=== PATIENT | female | born 1960 | race Two or more races ===

== ENCOUNTER 2018-11-17 10:02 | Emergency (ER) | payer MEDICAID ==
[~2018-11-17] VITALS: Ht 154.9 cm; Wt 69.0 kg
[2018-11-17] MEDS ORDERED: MORPHINE SULFATE 4 MG/ML CPJ (NOT FOR IM USE) IV STA (10:51)
[2018-11-17 11:39] LABS: BASOPHILS % 1.3 % (0.0-2.0); EOSINOPHILS % 6.3 % (0.0-5.0); HEMOGLOBIN. 13.2 g/dL (12.0-16.0); LYMPHOCYTES % 19.7 % (20.0-50.0); MEAN CORPUSCULAR HEMOGLOBIN 28.7 pg (28.0-32.0); MEAN CORPUSCULAR VOLUME 86.9 fL (81.0-99.0); MEAN PLATELET VOLUME 9.7 fl (7.4-10.4); MONOCYTES % 6.4 % (2.0-8.0); NEUTROPHILS % 66.3 % (40.0-76.0); PLATELET 371 x1000/uL (130-400); RED BLOOD CELL COUNT 4.61 mill/uL (4.2-5.4); RED CELL DISTRIBUTION WIDTH 13.7 % (11.6-14.6)
[2018-11-17 11:44] LABS: CHLORIDE 103 mEq/L (98-107)
[2018-11-17 13:53] VITALS: BP 162/76
== END 2018-11-17 13:54 | disposition home or self-care (01) ==
LOC: ER 10:02
DX: R05 Cough (principal); R07.89 Other chest pain
CPT/HCPCS: 36415; 71045; 80053; 83880; 84484; 85025; 93005; 96374; 99284; J2270

== ENCOUNTER 2018-12-27 14:44 | Inpatient (IN) | payer MEDICAID ==
[~2018-12-27] VITALS: Ht 154.9 cm; Wt 94.1 kg
[2018-12-27] MEDS ORDERED: OXYCODONE HCL/ACETAMINOPHEN 5/325MG TABLET PO ONE (16:30)
[2018-12-27 17:41] LABS: CLARITY URINE CLEAR (CLEAR); COLOR URINE YELLOW (YELLOW); KETONES URINE NEGATIVE (NEGATIVE); LEUKOCYTE ESTERASE URINE NEGATIVE (NEGATIVE); NITRITE URINE NEGATIVE (NEGATIVE); OCCULT BLOOD URINE NEGATIVE (NEGATIVE); PH URINE 6.5 (4.5-8.0); PROTEIN URINE NEGATIVE (NEGATIVE); UROBILINOGEN URINE 0.2 E.U./dL (0.2-1.0)
[2018-12-27] MEDS ORDERED: VANCOMYCIN 1 G PREMIX 200 ML IV STA (18:16)
[2018-12-27] MEDS ORDERED: AZITHROMYCIN 500 MG in DEXT 5% WATER 250 ML IV STA (18:16)
[2018-12-27] MEDS ORDERED: CEFTRIAXONE 1 G PREMIX 50 ML IV ONE (18:30)
[2018-12-27 19:13] LABS: BASOPHILS % 1.3 % (0.0-2.0); EOSINOPHILS % 9.5 % (0.0-5.0); HEMATOCRIT. 37.8 % (36.0-48.0); HEMOGLOBIN. 12.6 g/dL (12.0-16.0); LYMPHOCYTES % 25.6 % (20.0-50.0); MEAN CORPUSCULAR HEMOGLOBIN 28.9 pg (28.0-32.0); MEAN CORPUSCULAR VOLUME 86.3 fL (81.0-99.0); MEAN PLATELET VOLUME 8.9 fl (7.4-10.4); MONOCYTES % 6.5 % (2.0-8.0); NEUTROPHILS % 57.1 % (40.0-76.0); PLATELET 383 x1000/uL (130-400); RED BLOOD CELL COUNT 4.38 mill/uL (4.2-5.4); RED CELL DISTRIBUTION WIDTH 13.8 % (11.6-14.6)
[2018-12-27 19:20] LABS: CHLORIDE 99 mEq/L (98-107)
[2018-12-27] MEDS ORDERED: IPRATROPIUM BROMIDE (0.02%) 0.5MG/2.5ML NEB HHN STA (19:26)
[2018-12-27] MEDS ORDERED: SODIUM CHLORIDE 0.9% 1,000 ML IV ONE (19:26)
[2018-12-27] MEDS ORDERED: ALBUTEROL (0.083%) 2.5MG/3ML NEB HHN STA (19:26)
[2018-12-27] MEDS: SODIUM CHLORIDE 0.9% 1,000 ML IV SCH (20:24)
[2018-12-27] MEDS ORDERED: ACETAMINOPHEN 325MG TABLET PO PRN (20:30)
[2018-12-27] MEDS ORDERED: IPRATROPIUM/ALBUTEROL 0.5-3(2.5)MG/3ML NEB NEB PRN (20:30)
[2018-12-27] MEDS ORDERED: CLONIDINE 0.1MG TABLET PO PRN (20:30)
[2018-12-27] MEDS ORDERED: DOCUSATE SODIUM 100MG CAPSULE PO PRN (20:30)
[2018-12-27] MEDS ORDERED: ONDANSETRON HCL 4MG/2ML INJ IV PRN (20:30)
[2018-12-27 23:20] VITALS: BP 157/76
[2018-12-28] MEDS ORDERED: AZITHROMYCIN 500 MG in DEXT 5% WATER 250 ML IV SCH ×2
[2018-12-28] MEDS: IPRATROPIUM/ALBUTEROL 0.5-3(2.5)MG/3ML NEB HHN SCH ×4 (02:14→20:42)
[2018-12-28] MEDS ORDERED: FURO20TA4 MT (02:37)
[2018-12-28] MEDS ORDERED: LEVO750T46 MT (02:38)
[2018-12-28] MEDS ORDERED: OXYC-93 MT (02:41)
[2018-12-28] MEDS ORDERED: GLIP5TAB12 PO (02:42)
[2018-12-28 04:00] VITALS: BP 122/60
[2018-12-28 05:57] LABS: BASOPHILS % 0.9 % (0.0-2.0); EOSINOPHILS % 8.5 % (0.0-5.0); HEMATOCRIT. 35.6 % (36.0-48.0); HEMOGLOBIN. 11.9 g/dL (12.0-16.0); LYMPHOCYTES % 19.3 % (20.0-50.0); MEAN CORPUSCULAR HEMOGLOBIN 28.4 pg (28.0-32.0); MEAN CORPUSCULAR VOLUME 85.4 fL (81.0-99.0); MONOCYTES % 6.4 % (2.0-8.0); NEUTROPHILS % 64.9 % (40.0-76.0); PLATELET 337 x1000/uL (130-400); RED BLOOD CELL COUNT 4.17 mill/uL (4.2-5.4); RED CELL DISTRIBUTION WIDTH 13.7 % (11.6-14.6)
[2018-12-28 06:04] LABS: CHLORIDE 103 mEq/L (98-107)
[2018-12-28 08:00] VITALS: BP 137/75
[2018-12-28] MEDS ORDERED: DEXTROSE 50% WATER 50ML SYRINGE IV PRN (09:15)
[2018-12-28] MEDS: SODIUM CHLORIDE 0.9% 1,000 ML IV SCH ×2 (09:47→21:47)
[2018-12-28] MEDS: MORPHINE SULFATE 2 MG/ML CPJ (NOT FOR IM USE) IV PRN ×2 (09:49→23:58)
[2018-12-28 12:00] VITALS: BP 124/71
[2018-12-28] MEDS: INSULIN LISPRO 100 UNITS/ML SUBCUT SCH ×3 (12:37→21:00)
[2018-12-28] MEDS: BLOOD SUGAR DIAGNOSTIC STRIP TEST SCH ×3 (12:37→21:44)
[2018-12-28] MEDS: BACLOFEN 10MG TABLET PO SCH ×2 (13:12→21:45)
[2018-12-28 16:00] VITALS: BP 127/78
[2018-12-28] MEDS: CEFTRIAXONE 1 G PREMIX 50 ML IV SCH (17:31)
[2018-12-28] MEDS: LORATADINE 10MG TABLET PO SCH (17:31)
[2018-12-28] MEDS: MONTELUKAST SODIUM 10MG TABLET PO SCH (17:32)
[2018-12-28] MEDS ORDERED: CEFTRIAXONE 1 G PREMIX 50 ML IV SCH (18:00)
[2018-12-28 20:00] VITALS: BP 148/78
[2018-12-28] MEDS: BUDESONIDE 0.5MG/2ML NEB HHN SCH (20:45)
[2018-12-28] MEDS: AZITHROMYCIN 500 MG in DEXT 5% WATER 250 ML IV SCH (21:34)
[2018-12-28] MEDS: FAMOTIDINE 20MG TABLET PO SCH (21:43)
[2018-12-29] VITALS: BP 139/74
[2018-12-29] MEDS: IPRATROPIUM/ALBUTEROL 0.5-3(2.5)MG/3ML NEB HHN SCH ×4 (00:19→20:09)
[2018-12-29 04:00] VITALS: BP 147/78
[2018-12-29] MEDS: BACLOFEN 10MG TABLET PO SCH ×3 (05:38→22:09)
[2018-12-29] MEDS: BLOOD SUGAR DIAGNOSTIC STRIP TEST SCH ×4 (06:57→21:57)
[2018-12-29 07:33] LABS: BASOPHILS % 2.6 % (0.0-2.0); HEMATOCRIT. 34.2 % (36.0-48.0); HEMOGLOBIN. 11.4 g/dL (12.0-16.0); LYMPHOCYTES % 25.1 % (20.0-50.0); MEAN CORPUSCULAR HEMOGLOBIN 28.6 pg (28.0-32.0); MEAN CORPUSCULAR VOLUME 86.2 fL (81.0-99.0); MEAN PLATELET VOLUME 8.9 fl (7.4-10.4); MONOCYTES % 8.2 % (2.0-8.0); NEUTROPHILS % 51.1 % (40.0-76.0); PLATELET 316 x1000/uL (130-400); RED BLOOD CELL COUNT 3.97 mill/uL (4.2-5.4); RED CELL DISTRIBUTION WIDTH 13.6 % (11.6-14.6)
[2018-12-29] MEDS: INSULIN LISPRO 100 UNITS/ML SUBCUT SCH ×4 (07:50→21:57)
[2018-12-29 08:00] VITALS: BP 132/71
[2018-12-29] MEDS: BUDESONIDE 0.5MG/2ML NEB HHN SCH ×2 (08:04→20:08)
[2018-12-29 08:41] LABS: CHLORIDE 108 mEq/L (98-107)
[2018-12-29] MEDS: LORATADINE 10MG TABLET PO SCH (08:57)
[2018-12-29 12:00] VITALS: BP 132/66
[2018-12-29] MEDS: SODIUM CHLORIDE 0.9% 1,000 ML IV SCH (13:17)
[2018-12-29 16:00] VITALS: BP 135/66
[2018-12-29 17:14] LABS: PROTHROMBIN TIME 10.4 sec (9.6-11.0)
[2018-12-29] MEDS: MONTELUKAST SODIUM 10MG TABLET PO SCH (17:40)
[2018-12-29] MEDS: CEFTRIAXONE 1 G PREMIX 50 ML IV SCH (17:40)
[2018-12-29] MEDS: AZITHROMYCIN 500 MG in DEXT 5% WATER 250 ML IV SCH (22:09)
[2018-12-29] MEDS: FAMOTIDINE 20MG TABLET PO SCH (22:10)
[2018-12-30] VITALS (14 sets, daily range): BP systolic 137–175; BP diastolic 68–105
[2018-12-30] MEDS: SODIUM CHLORIDE 0.9% 1,000 ML IV SCH ×2 (02:29→15:13)
[2018-12-30] MEDS: IPRATROPIUM/ALBUTEROL 0.5-3(2.5)MG/3ML NEB HHN SCH ×4 (03:03→20:44)
[2018-12-30] MEDS: BACLOFEN 10MG TABLET PO SCH ×3 (06:00→21:32)
[2018-12-30] MEDS: BLOOD SUGAR DIAGNOSTIC STRIP TEST SCH ×4 (06:27→21:20)
[2018-12-30 07:05] LABS: CHLORIDE 109 mEq/L (98-107)
[2018-12-30 07:19] LABS: BASOPHILS % 1.3 % (0.0-2.0); EOSINOPHILS % 11.2 % (0.0-5.0); HEMATOCRIT. 32.4 % (36.0-48.0); LYMPHOCYTES % 23.4 % (20.0-50.0); MEAN CORPUSCULAR HEMOGLOBIN 29.1 pg (28.0-32.0); MEAN CORPUSCULAR VOLUME 85.8 fL (81.0-99.0); MEAN PLATELET VOLUME 9.1 fl (7.4-10.4); MONOCYTES % 6.4 % (2.0-8.0); NEUTROPHILS % 57.7 % (40.0-76.0); PLATELET 324 x1000/uL (130-400); RED BLOOD CELL COUNT 3.77 mill/uL (4.2-5.4); RED CELL DISTRIBUTION WIDTH 13.7 % (11.6-14.6)
[2018-12-30] MEDS: BUDESONIDE 0.5MG/2ML NEB HHN SCH ×2 (07:47→20:44)
[2018-12-30] MEDS: INSULIN LISPRO 100 UNITS/ML SUBCUT SCH ×4 (07:50→21:21)
[2018-12-30 08:07] LABS: CANCER ANTIGEN 125 282.1 U/mL (0.0-38.1)
[2018-12-30] MEDS ORDERED: LIDOCAINE HCL 1% 20ML VIAL (Pyxis) INJ ONE ×2 (08:53→12:23)
[2018-12-30] MEDS ORDERED: SODIUM BICARBONATE 4% (2.4MEQ) 5ML VIAL IV ONE ×2 (08:53→12:23)
[2018-12-30] MEDS ORDERED: FENTANYL CITRATE/PF 50MCG/ML 2ML VIAL ONE ×2 (08:53→12:23)
[2018-12-30] MEDS: LORATADINE 10MG TABLET PO SCH (09:00)
[2018-12-30] MEDS ORDERED: FENTANYL CITRATE/PF 50MCG/ML 2ML VIAL IV ONE (14:00)
[2018-12-30] MEDS: CEFTRIAXONE 1 G PREMIX 50 ML IV SCH (17:36)
[2018-12-30] MEDS: MONTELUKAST SODIUM 10MG TABLET PO SCH (17:36)
[2018-12-30 18:39] LABS: HEMATOCRIT 36.6 % (36.0-48.0); HEMOGLOBIN 11.9 g/dL (12.0-16.0)
[2018-12-30] MEDS: AZITHROMYCIN 500 MG in DEXT 5% WATER 250 ML IV SCH (21:23)
[2018-12-30] MEDS: FAMOTIDINE 20MG TABLET PO SCH (21:23)
[2018-12-30] MEDS: ZOLPIDEM TARTRATE 5MG TABLET PO PRN (23:05)
[2018-12-31] VITALS: BP 109/67
[2018-12-31] MEDS: IPRATROPIUM/ALBUTEROL 0.5-3(2.5)MG/3ML NEB HHN SCH ×4 (02:29→21:18)
[2018-12-31] MEDS: BACLOFEN 10MG TABLET PO SCH ×3 (06:27→22:41)
[2018-12-31] MEDS: BLOOD SUGAR DIAGNOSTIC STRIP TEST SCH ×4 (06:30→22:41)
[2018-12-31] MEDS: INSULIN LISPRO 100 UNITS/ML SUBCUT SCH ×4 (07:50→22:41)
[2018-12-31 08:00] VITALS: BP 123/69
[2018-12-31 08:26] LABS: CHLORIDE 109 mEq/L (98-107)
[2018-12-31 08:27] LABS: BASOPHILS % 1.2 % (0.0-2.0); EOSINOPHILS % 11.4 % (0.0-5.0); HEMATOCRIT. 33.8 % (36.0-48.0); HEMOGLOBIN. 11.2 g/dL (12.0-16.0); LYMPHOCYTES % 21.1 % (20.0-50.0); MEAN CORPUSCULAR HEMOGLOBIN 28.8 pg (28.0-32.0); MEAN CORPUSCULAR VOLUME 86.8 fL (81.0-99.0); MEAN PLATELET VOLUME 8.9 fl (7.4-10.4); MONOCYTES % 6.4 % (2.0-8.0); NEUTROPHILS % 59.9 % (40.0-76.0); PLATELET 322 x1000/uL (130-400); RED BLOOD CELL COUNT 3.89 mill/uL (4.2-5.4); RED CELL DISTRIBUTION WIDTH 13.5 % (11.6-14.6)
[2018-12-31] MEDS: LORATADINE 10MG TABLET PO SCH (09:12)
[2018-12-31] MEDS: BUDESONIDE 0.5MG/2ML NEB HHN SCH ×2 (09:22→21:18)
[2018-12-31 12:00] VITALS: BP 140/63
[2018-12-31 17:00] VITALS: BP 159/92
[2018-12-31] MEDS: SODIUM CHLORIDE 0.9% 1,000 ML IV SCH ×2 (17:44→22:42)
[2018-12-31] MEDS: MONTELUKAST SODIUM 10MG TABLET PO SCH (18:32)
[2018-12-31] MEDS: CEFTRIAXONE 1 G PREMIX 50 ML IV SCH (18:32)
[2018-12-31 20:20] VITALS: BP 150/76
[2018-12-31] MEDS: FAMOTIDINE 20MG TABLET PO SCH (22:41)
[2018-12-31] MEDS: AZITHROMYCIN 500 MG in DEXT 5% WATER 250 ML IV SCH (22:42)
[2018-12-31] MEDS: ZOLPIDEM TARTRATE 5MG TABLET PO PRN (22:42)
[2019-01-01 00:21] VITALS: BP 143/82
[2019-01-01] MEDS: IPRATROPIUM/ALBUTEROL 0.5-3(2.5)MG/3ML NEB HHN SCH ×4 (02:04→20:46)
[2019-01-01 04:00] VITALS: BP 144/70
[2019-01-01] MEDS: BACLOFEN 10MG TABLET PO SCH ×3 (05:49→21:04)
[2019-01-01] MEDS: BLOOD SUGAR DIAGNOSTIC STRIP TEST SCH ×4 (06:54→20:57)
[2019-01-01] MEDS: SODIUM CHLORIDE 0.9% 1,000 ML IV SCH ×2 (07:04→21:16)
[2019-01-01] MEDS: INSULIN LISPRO 100 UNITS/ML SUBCUT SCH ×4 (07:43→20:57)
[2019-01-01 08:00] VITALS: BP 144/87
[2019-01-01] MEDS: LORATADINE 10MG TABLET PO SCH (08:25)
[2019-01-01] MEDS: MONTELUKAST SODIUM 10MG TABLET PO SCH (17:45)
[2019-01-01 19:57] VITALS: BP 155/74
[2019-01-01 20:05] VITALS: BP 155/74
[2019-01-01] MEDS ORDERED: AZITHROMYCIN 500 MG TABLET PO SCH (21:00)
[2019-01-01] MEDS ORDERED: CEFTRIAXONE 1 G PREMIX 50 ML IV SCH (21:00)
[2019-01-01] MEDS: ZOLPIDEM TARTRATE 5MG TABLET PO PRN (21:04)
[2019-01-01] MEDS: FAMOTIDINE 20MG TABLET PO SCH (21:04)
[2019-01-02] VITALS (7 sets, daily range): BP systolic 129–157; BP diastolic 59–87
[2019-01-02] MEDS: IPRATROPIUM/ALBUTEROL 0.5-3(2.5)MG/3ML NEB HHN SCH ×4 (01:35→19:48)
[2019-01-02] MEDS: BACLOFEN 10MG TABLET PO SCH ×3 (06:27→21:45)
[2019-01-02] MEDS: BLOOD SUGAR DIAGNOSTIC STRIP TEST SCH ×4 (06:28→21:06)
[2019-01-02] MEDS: INSULIN LISPRO 100 UNITS/ML SUBCUT SCH ×4 (07:00→21:00)
[2019-01-02] MEDS: SODIUM CHLORIDE 0.9% 1,000 ML IV SCH ×2 (08:52→22:11)
[2019-01-02] MEDS: LORATADINE 10MG TABLET PO SCH (08:52)
[2019-01-02] MEDS: MONTELUKAST SODIUM 10MG TABLET PO SCH (18:31)
[2019-01-02] MEDS: ZOLPIDEM TARTRATE 5MG TABLET PO PRN (21:45)
[2019-01-02] MEDS: FAMOTIDINE 20MG TABLET PO SCH (21:45)
[2019-01-03] VITALS (7 sets, daily range): BP systolic 107–160; BP diastolic 66–86
[2019-01-03] MEDS: IPRATROPIUM/ALBUTEROL 0.5-3(2.5)MG/3ML NEB HHN SCH ×4 (02:38→20:15)
[2019-01-03 06:18] LABS: CHLORIDE 109 mEq/L (98-107)
[2019-01-03] MEDS: BACLOFEN 10MG TABLET PO SCH ×3 (06:22→21:44)
[2019-01-03] MEDS: BLOOD SUGAR DIAGNOSTIC STRIP TEST SCH ×4 (06:22→20:37)
[2019-01-03 06:39] LABS: BASOPHILS % 1.1 % (0.0-2.0); EOSINOPHILS % 10.7 % (0.0-5.0); HEMATOCRIT. 33.2 % (36.0-48.0); HEMOGLOBIN. 11.1 g/dL (12.0-16.0); LYMPHOCYTES % 20.6 % (20.0-50.0); MEAN CORPUSCULAR HEMOGLOBIN 28.8 pg (28.0-32.0); MEAN CORPUSCULAR VOLUME 86.5 fL (81.0-99.0); MEAN PLATELET VOLUME 8.9 fl (7.4-10.4); MONOCYTES % 6.8 % (2.0-8.0); NEUTROPHILS % 60.8 % (40.0-76.0); PLATELET 351 x1000/uL (130-400); RED BLOOD CELL COUNT 3.84 mill/uL (4.2-5.4); RED CELL DISTRIBUTION WIDTH 13.6 % (11.6-14.6)
[2019-01-03] MEDS: INSULIN LISPRO 100 UNITS/ML SUBCUT SCH ×4 (06:50→20:37)
[2019-01-03] MEDS: BUDESONIDE 0.5MG/2ML NEB HHN SCH ×2 (09:40→20:15)
[2019-01-03] MEDS: LORATADINE 10MG TABLET PO SCH (10:07)
[2019-01-03] MEDS: MONTELUKAST SODIUM 10MG TABLET PO SCH (17:06)
[2019-01-03] MEDS ORDERED: ALBU18HF2 IH (17:30)
[2019-01-03] MEDS ORDERED: BACL-141 PO (17:30)
[2019-01-03] MEDS: FAMOTIDINE 20MG TABLET PO SCH (21:44)
== END 2019-01-03 22:00 | disposition home or self-care (01) | DRG 133 ==
LOC: ER 14:44 → 6WST 18:59 → EDBEDREQ 19:00 → EDBEDREQTM 19:01 → ENRESERV 21:09
PROVIDERS: ADMIT Internal Medicine; ATTEND Internal Medicine
PROC: 0FB13ZX Excision of Right Lobe Liver, Percutaneous Approach, Diagnostic (ICD-10-PCS; principal; 2018-12-30)
DX: J96.00 Acute respiratory failure, unspecified whether with hypoxia or hypercapnia (principal); J18.9 Pneumonia, unspecified organism; I11.0 Hypertensive heart disease with heart failure; C78.7 Secondary malignant neoplasm of liver and intrahepatic bile duct; D72.1 Eosinophilia; E87.1 Hypo-osmolality and hyponatremia; I50.9 Heart failure, unspecified; I50.40 Unspecified combined systolic (congestive) and diastolic (congestive) heart failure; E11.9 Type 2 diabetes mellitus without complications; Z85.118 Personal history of other malignant neoplasm of bronchus and lung; C34.91 Malignant neoplasm of unspecified part of right bronchus or lung; I71.4 Abdominal aortic aneurysm, without rupture; K21.9 Gastro-esophageal reflux disease without esophagitis; R63.4 Abnormal weight loss
CPT/HCPCS: 36415; 71045; 71260; 74176; 77012; 80048; 80076; 81003; 82105; 82378; 82962; 83605; 83880; 84145; 84484; 85014; 85018; 86301; 86304; 88307; 93005; 93970; 94618; 94640; 99152; 99153; 99291; C1893; J0456; J0696; J1815; J2270; J3010; J3370; J3490; J7030; J7060; J7611; J7620; J7626; G0500